=== PATIENT | female | born 1985 | race Caucasian/White ===

== ENCOUNTER → 2020-10-03 | Outpatient (CLI) | payer OTHER ==
--- NOTE | 2020-10-03 15:06 | MR ---
EXAMINATION TYPE: MR brain wo con DATE OF EXAM: 10/03/2020 COMPARISON: NONE HISTORY: Right sided facial twitch and tightness, intermittent Right eye blurriness TECHNIQUE: Multiplanar, multisequence imaging of the brain and brainstem is performed without IV cont rast. FINDINGS: Diffusion weighted images demonstrate no evidence of a recent infarct or other diffusion abnormality. There is no worrisome extra-axial fluid collection. The ventricular system and cisternal spaces are normal in size and appearance. The brain volume is age appropriate. Some scattered foci of T2 hyperi ntensity are seen throughout the white matter bilaterally. Ovoid or oval-shaped lesions are noted. Ap proximately 15 scattered lesions. For reference two roughly 6 mm lesions long axis in the bilateral f rontal lobes axial image 17. For reference a high 7 mm lesion on axial image 27 high right frontal re gion. T2 Star weighted images show no suspicious intraparenchymal blood products. Midline structures demonstrate normal morphology. The craniocervical junction appears within normal limits. Normal vascular flow voids are present. The visualized sinuses are clear and the globes are i ntact. IMPRESSION: [id number] nonspecific white matter changes somewhat prominent for patient's chrono logic age. Differential includes product of demyelinating disease, other etiologies such as infectiou s process such as product of Lyme disease is in differential. Patient may benefit with contrast MRI e valuation.
== END | disposition home or self-care (01) ==
LOC: RADMRIMAIN 07:42
PROVIDERS: ATTEND Nurse Practitioner
DX: R90.82 White matter disease, unspecified (principal)
CPT/HCPCS: 70551

== ENCOUNTER → 2023-08-17 | Outpatient (CLI) | payer OTHER ==
--- NOTE | 2023-08-22 14:36 | MM ---
Reason for Exam: Screening (asymptomatic). Patient History: Menarche at age 10. First Full-Term at age 17. Premenopausal. Maternal grandmother had breast cancer. Risk Values: Kenyatta 5 year model risk: 0.4%. NCI Lifetime model risk: 7.3%. Tissue Density: The breast tissue is extremely dense which could obscure a lesion on mammography. Findings: Analyzed By CAD. Pattern appears symmetrical. Couple benign punctate calcifications are anterior left breast. No suspicious groups of microcalcifications, spiculated or lobular masses, architectural distortion or other secondary signs of malignancy are mammographically apparent. Overall Assessment: Benign, BI-RAD 2 Management: Screening Mammogram of both breasts in 1 year. A negative mammogram report should not preclude additional follow up of suspicious palpable abnormalities. Patient should continue monthly self breast exam. A clinical breast exam by your physician is recommended on an annual basis and results should be correlated with mammographic findings. Electronically signed and approved by: Cali Corral D.O. Radiologis
== END | disposition home or self-care (01) ==
LOC: RADMAMWWP 15:52
PROVIDERS: ATTEND Family Medicine
DX: Z12.31 Encounter for screening mammogram for malignant neoplasm of breast (principal); Z80.3 Family history of malignant neoplasm of breast
CPT/HCPCS: 77063; 77067